=== PATIENT | female | born 2000 ===

== ENCOUNTER 2018-04-23 20:54 | Emergency (ER) | payer MEDICAID, OTHER ==
[2018-04-23] MEDS ORDERED: Sodium Chloride 0.9% 500 ML IV ONE (21:39)
--- NOTE | 2018-04-23 21:49 | ED PDOC ---
History of Present Illness History of Present Illness: Chanelle Merino is a 17 year old female with no significant past medical history who is presenting to the ED for evaluation of flu-like symptoms onset today. Patient states that she developed a headache, body aches, associated with non- productive cough all onset this morning. She states that she had a fever around 6 pm at and complained of a sore throat and ear pain. She denies getting a flu shot this season and denies any nausea, vomiting, diarrhea, or sick contacts. Patient states that she took Motrin around 10 am today and took a dose of leftover Augmentin from 1 year ago at 6 pm today. Of note, patient states that she is eating and drinking normally. PMD: none provided HPI: Influenza Time Seen by Provider: 04/23/18 21:21 Chief Complaint: Flu-like Symptoms Chief Complaint (Provider): Flu-like Symptoms History Per: Patient Exam Limitations: no limitations Onset/Duration Of Symptoms: Hrs Symptoms include: fever, headache, bodyaches, sore throat, cough, nasal congestion. denies: vomiting, diarrhea, chest pain Past Medical History Reviewed: Historical Data, Nursing Documentation, Vital Signs Vital Signs: Last Vital Signs Temp 102.1 F H 04/23/18 21:01 Pulse 134 H 04/23/18 21:01 Resp 18 04/23/18 21:01 BP 142/82 04/23/18 21:01 Pulse Ox 100 04/23/18 21:01 - Medical History PMH: Migraine - Surgical History Surgical History: No Surg Hx - Family History Family History: States: Diabetes - Social History Current smoker - smoking cessation education provided: No Alcohol: None Drugs: Denies - Home Medications Home Medications: Ambulatory Orders Medication Instructions Recorded Nitrofurantoin Macrocrystals 1 cap PO BID #14 cap 08/25/15 [Macrobid] Acetaminophen [Tylenol] 650 mg PO Q6 PRN 5 Days capsule 04/23/18 Ibuprofen [Motrin Tab] 600 mg PO Q6 PRN 5 Days tab 04/23/18 Oseltamivir Cap [Tamiflu] 75 mg PO BID 5 Days cap 04/23/18 - Allergies Allergies/Adverse Reactions: Allergies Allergy/AdvReac Type Severity Reaction Status Date / Time No Known Allergies Allergy Verified 08/25/15 07:41 Review of Systems ROS Statement: Except As Marked, All Systems Reviewed And Found Negative Constitutional: Positive for: Fever, Other (body aches) ENT: Positive for: Ear Pain Respiratory: Positive for: Cough Gastrointestinal: Negative for: Nausea, Vomiting, Diarrhea Neurological: Positive for: Headache Physical Exam - Reviewed Nursing Documentation Reviewed: Yes Vital Signs Reviewed: Yes - Physical Exam Appears: Positive for: Non-toxic, No Acute Distress, Uncomfortable Head Exam: Positive for: ATRAUMATIC, NORMAL INSPECTION, NORMOCEPHALIC Skin: Positive for: Normal Color, Warm, DRY Eye Exam: Positive for: Normal appearance, EOMI, PERRL ENT: Positive for: TM Is/Are (normal), Pharyngeal Erythema, Other (swollen nasal turbinates). Negative for: Tonsillar Exudate, Tonsillar Swelling Neck: Positive for: Normal, Painless ROM, Supple Cardiovascular/Chest: Positive for: Tachycardia. Negative for: Murmur Respiratory: Positive for: Normal Breath Sounds. Negative for: Respiratory Distress Neurologic/Psych: Positive for: Alert, Oriented. Negative for: Motor/Sensory Deficits Medical Decision Making Medical Decision Making: Time: 21:44 Plan: --IV Fluids --Tylenol 650 mg PO --Rapid Flu --Rapid Strep --Reevaluation Rapid flu and rapid strep negative. Tamiflu ordered for likely Influenza as symptoms very convincing. Ibuprofen 600mg PO x 1 given for persistent Lemon. Fever defervesced to 99.6F and HR down to 94 prior to d/c home Scribe Attestation: Documented by Katelyn Rubio, acting as a scribe for Rachael Torres PA-C. Provider Scribe Attestation: All medical record entries made by the Scribe were at my direction and per sonally dictated by me. I have reviewed the chart and agree that the record accurately reflects my personal performance of the history, physical exam, medical decision making, and the department course for this patient. I have also personally directed, reviewed, and agree with the discharge instructions and disposition. - ECG O2 Sat by Pulse Oximetry: 100 Disposition - Clinical Impression Clinical Impression: Influenza - Patient ED Disposition Is Patient to be Admitted: No Counseled Patient/Family Regarding: Studies Performed, Diagnosis, Need For Followup - Disposition Referrals: Shaina Monk MD [IM] - Disposition: Routine/Home Disposition Time: 23:55 Condition: STABLE Additional Instructions: Stay hydrated and get a lot of rest. Take Tylenol or Ibuprofen for fevers and body aches. Have close contacts be evaluated right away if they develop similar symptoms. Tamiflu will reduce the severity of your symptoms but it will not cure it. Prescriptions: Acetaminophen [Tylenol] 650 mg PO Q6 PRN 5 Days capsule PRN Reason: Pain, Moderate (4-7) Ibuprofen [Motrin Tab] 600 mg PO Q6 PRN 5 Days tab PRN Reason: Pain, Moderate (4-7) Oseltamivir Cap [Tamiflu] 75 mg PO BID 5 Days cap Instructions: Flu, Adult (DC) Forms: [employer] (Tai[place]ese) Print Language: GERMAN
[2018-04-23] MEDS ORDERED: Oseltamivir 6 MG/ML PO STA (22:42)
[2018-04-23 23:47] VITALS: BP 124/70; PULSE 94; RESP 16; TEMP 99.6
[2018-04-24 00:18] VITALS: O2SAT 100
== END 2018-04-23 23:55 | disposition home or self-care (01) ==
LOC: H.ER 20:54
DX: J11.1 Influenza due to unidentified influenza virus with other respiratory manifestations (principal)